=== PATIENT | male | born 1985 | race African-American/Black ===

== ENCOUNTER 2017-07-06 14:06 | Emergency (ER) | payer OTHER, SELFPAY ==
[2017-07-06] MEDS ORDERED: Acetaminophen 500 MG TAB ONE (14:22)
[2017-07-06] MEDS ORDERED: Dexamethasone 4 mg/ml Vial ONE (14:37)
[2017-07-06] MEDS ORDERED: Bicillin LA 1.2 MILLION UNITS/2 ML SYRINGE ONE (14:37)
[2017-07-06] MEDS ORDERED: Ibuprofen 800 MG TAB ONE (15:17)
== END 2017-07-06 15:44 | disposition home or self-care (01) ==
LOC: ERS 14:06
DX: J02.0 Streptococcal pharyngitis (principal); E11.9 Type 2 diabetes mellitus without complications; F17.210 Nicotine dependence, cigarettes, uncomplicated
CPT/HCPCS: 87081; 87430; 96372; 99406; J0561; J1100

== ENCOUNTER 2018-06-25 14:25 | Emergency (ER) | payer SELFPAY ==
[2018-06-25] MEDS ORDERED: Metoclopramide HCl 10 MG/2 ML VIAL ONE (14:47)
[2018-06-25] MEDS ORDERED: diphenhydrAMINE 50 MG/ML VIAL ONE (14:47)
== END 2018-06-25 17:49 | disposition home or self-care (01) ==
LOC: ERS 14:25
DX: R51 Headache (principal); E11.9 Type 2 diabetes mellitus without complications; F17.210 Nicotine dependence, cigarettes, uncomplicated
CPT/HCPCS: 96365; 96366; 96375; J1200; J2765